=== PATIENT | female | born 1955 | race Caucasian/White ===

== ENCOUNTER 2019-11-11 14:02 | Outpatient (CLI) | payer MEDICARE ==
[2019-11-11 14:46] LABS: INR 2.2 (0.8-1.2)
== END 2019-11-11 14:03 | disposition home or self-care (01) ==
LOC: LAB 14:02
PROVIDERS: ATTEND Internal Medicine
DX: I48.0 Paroxysmal atrial fibrillation (principal); Z79.01 Long term (current) use of anticoagulants
CPT/HCPCS: 36415; 85610

== ENCOUNTER 2021-11-15 21:57 | Emergency (ER) | payer MEDICARE ==
[2021-11-15] MEDS ORDERED: MORPHINE 2 MG/ML CARPUJECT IVP STA (22:28)
[2021-11-15] MEDS ORDERED: ONDANSETRON 4 MG/2 ML VIAL IVP STA (22:28)
[2021-11-15 22:32] LABS: BASOPHILS % (AUTO) 0.2 %; EOSINOPHILS # (AUTO) 0.1 10^3/uL (0.0-0.7); EOSINOPHILS % (AUTO) 1.7 %; HCT - HEMATOCRIT 35.5 % (37.0-47.0); HGB - HEMOGLOBIN 11.1 g/dL (12.0-16.0); LYMPHOCYTES # (AUTO) 1.1 10^3/uL (1.5-3.5); LYMPHOCYTES % (AUTO) 13.8 %; MEAN CORPUSCULAR HEMOGLOBIN 23.7 pg (27.0-31.0); MEAN CORPUSCULAR HGB CONC 31.3 g/dL (32.0-36.0); MEAN CORPUSCULAR VOLUME 75.9 fL (81.0-99.0); MEAN PLATELET VOLUME 10.3 fL (7.9-10.8); MONOCYTES # (AUTO) 1.1 10^3/uL (0.0-1.0); NEUTROPHILS # (AUTO) 5.8 10^3/uL (1.5-6.6); NEUTROPHILS % (AUTO) 70.9 %; PLT - PLATELET COUNT 205 10^3/uL (130-450); RED BLOOD COUNT 4.68 10^6/uL (4.20-5.40); WHITE BLOOD COUNT 8.2 x10^3/uL (4.8-10.8)
[2021-11-15 22:38] LABS: INR 2.4 (0.8-1.2); PT - PROTHROMBIN TIME 25.5 secs (9.9-12.6)
[2021-11-15 22:46] LABS: ALBUMIN 3.8 g/dL (3.2-5.5); ALBUMIN/GLOBULIN RATIO 1.2 (1.0-2.2); BILIRUBIN,TOTAL 1.3 mg/dL (0.2-1.0); CALCIUM 9.1 mg/dL (8.5-10.3); POTASSIUM 3.7 mmol/L (3.5-5.0)
--- NOTE | 2021-11-15 22:48 | ED Physician Documentation ---
History of Present Illness - Stated complaint Stated Complaint: CHEST PX - Chief complaint Chief Complaint: Cardiac - History obtained from History obtained from: Patient - Additonal information Additional information: Patient is a 66-year-old female with a history of atrial fibrillation (on warfarin), CHF presenting for evaluation of lower chest pain that has been present since 10:00 this morning. She describes it as a tight band around her body as well as burning. It does not radiate elsewhere.She has not done much activity today but feels that it does worsen when she is trying to move around .She denies vomiting or diarrhea but does report nausea. Denies fever, cough or congestion. She has been compliant with her medications including her diuretic.Denies increased leg swelling or change in diet such as increased salt. Denies difficulty breathing.Denies history of cardiac stents. Review of Systems Constitutional: denies: Fever Nose: denies: Congestion Throat: denies: Sore throat Cardiac: reports: Chest pain / pressure Respiratory: denies: Dyspnea, Cough GI: reports: Abdominal Pain, Nausea. denies: Vomiting, Diarrhea : denies: Dysuria Musculoskeletal: denies: Back pain Neurologic: denies: Headache PD PAST MEDICAL HISTORY - Present Medications Home Medications: Ambulatory Orders Medication Instructions Recorded Confirmed Amitriptyline [Elavil] 25 mg PO 11/15/21 Amitriptyline [Elavil] 25 mg PO 11/15/21 Atorvastatin Calcium 40 mg PO 11/15/21 Gabapentin [Neurontin] 100 mg PO ONCE 11/15/21 11/15/21 Glipizide [Glipizide ER] 5 mg PO 11/15/21 Metoprolol Succinate [Toprol Xl] 25 mg PO ONCE 11/15/21 11/15/21 Montelukast [Singulair] 10 mg PO QPM 11/15/21 11/15/21 Oxycodone HCl [Roxicodone] 5 mg PO 11/15/21 Potassium Chloride 10 meq PO 11/15/21 Torsemide 20 mg PO DAILY 11/15/21 11/15/21 Warfarin [Coumadin] 5 mg PO 11/15/21 metFORMIN [Glucophage] 500 mg PO ONCE 11/15/21 11/15/21 rOPINIRole [Requip] 0.25 mg PO QPM 11/15/21 11/15/21 Ondansetron Odt [Zofran] 4 mg TL Q6H PRN #10 tablet 11/16/21 Oxycodone HCl/Acetaminophen 1 each PO Q6H PRN #10 tablet 11/16/21 [Percocet 5-325 mg Tablet] - Allergies Allergies/Adverse Reactions: Allergies Allergy/AdvReac Type Severity Reaction Status Date / Time cephalexin Allergy Anaphylaxis Verified 11/15/21 22:08 ciprofloxacin [From Cipro] Allergy Anaphylaxis Verified 11/15/21 22:08 PD ED PE NORMAL - General General: Alert and oriented X 3, No acute distress, Well developed/nourished - HEENT HEENT: Atraumatic, Moist mucous membranes - Neck Neck: Supple, no meningeal sign - Cardiac Cardiac: RRR, No murmur, Strong equal pulses - Respiratory Respiratory: No respiratory distress, Clear bilaterally - Abdomen Abdomen: Normal bowel sounds, Soft, Non distended, Other (Epigastric and bilateral upper quadrant tenderness to palpation, no rebound, no guarding, no masses or hernias) - Derm Derm: Warm and dry - Extremities Extremities: No edema, No calf tenderness / cord - Neuro Neuro: Normal speech Results - Vitals Vitals: Vital Signs - 24 hr 11/15/21 11/15/21 11/16/21 21:59 23:51 00:00 Temperature 36.6 C Heart Rate 75 62 64 Respiratory 18 15 15 Rate Blood Pressure 139/89 H 114/64 122/104 H O2 Saturation 97 98 99 11/16/21 00:45 Temperature Heart Rate 63 Respiratory 18 Rate Blood Pressure 117/103 H O2 Saturation 98 Oxygen O2 Source Room air - EKG (time done) 2201 Rate: Rate (enter#) (77) Rhythm: NSR Ischemia: No: ST elevation c/w ischemia, ST depression Other comments: Other comments (Motion artifact in multiple leads) Compare to prior EKG: Old EKG unavailable - Labs Labs: Laboratory Tests 11/15/21 11/15/21 11/15/21 22:17 22:17 22:17 WBC 8.2 RBC 4.68 Hgb 11.1 L Hct 35.5 L MCV 75.9 L MCH 23.7 L MCHC 31.3 L RDW 17.0 H Plt Count 205 MPV 10.3 Neut # (Auto) 5.8 Lymph # (Auto) 1.1 L [place] # (Auto) 1.1 H Eos # (Auto) 0.1 Baso # (Auto) 0.0 Absolute Nucleated RBC 0.00 Nucleated RBC % 0.0 PT INR Sodium 131 L Potassium 3.7 Chloride 94 L Carbon Dioxide 29 Anion Gap 8.0 BUN 16 Creatinine 1.0 Estimated GFR (MDRD) 55 L Glucose 166 H Calcium 9.1 Total Bilirubin 1.3 H AST 21 ALT 25 Alkaline Phosphatase 93 Troponin I High Sens 6.5 Total Protein 7.0 Albumin 3.8 Globulin 3.2 Albumin/Globulin Ratio 1.2 Lipase 35 11/15/21 22:17 WBC RBC Hgb Hct MCV MCH MCHC RDW Plt Count MPV Neut # (Auto) Lymph # (Auto) [place] # (Auto) Eos # (Auto) Baso # (Auto) Absolute Nucleated RBC Nucleated RBC % PT 25.5 H INR 2.4 H Sodium Potassium Chloride Carbon Dioxide Anion Gap BUN Creatinine Estimated GFR (MDRD) Glucose Calcium Total Bilirubin AST ALT Alkaline Phosphatase Troponin I High Sens Total Protein Albumin Globulin Albumin/Globulin Ratio Lipase PD MEDICAL DECISION MAKING - ED course Complexity details: reviewed results, re-evaluated patient, d/w patient, d/w family ED course: Patient presenting for evaluation of lower chest and upper abdominal pain. On exam her pain appears to be more to the abdomen than to the chest. EKG is reassuring and high-sensitivity is troponin is negative with constant pain greater than 6 hours. Feel that her symptoms are atypical for ACS. Chest x-ray also reviewed. Labs without significant findings. CT abdomen pelvis was also obtained without significant abnormalities. Patient feeling better with treatment in the emergency department. Discussed that the etiology of her symptoms is unclear and that she needs close follow-up. Also reviewed concerning symptoms to return for. Departure - Departure Disposition: 01 Home, Self Care Clinical Impression: Upper abdominal pain Chest pain Qualifiers: Chest pain type: unspecified Qualified Code(s): R07.9 - Chest pain, unspecified Condition: Stable Instructions: ED Chest Pain Atypical Unkn Cause, ED Epigastric Pain [facility] Prescriptions: Oxycodone HCl/Acetaminophen [Percocet 5-325 mg Tablet] 1 each PO Q6H PRN #10 tablet PRN Reason: pain Ondansetron Odt [Zofran] 4 mg TL Q6H PRN #10 tablet PRN Reason: Nausea / Vomiting Comments: You were evaluated for lower chest and upper abdominal pain.Your cardiac testing is reassuring with no signs of heart attack. Your labs are without any significant abnormalities. Your INR/Warfarin level is 2.4 which is within the appropriate range. A CT scan of your abdomen and pelvis was also obtained without any significant findings. The exact cause of your symptoms is unclear.You may need further testing such as follow-up with a GI doctor for a scope to determine the cause of your pain.Please continue with taking omeprazole and avoid any acidic or spicy foods.I have also sent a prescription [facility] and [facility] [place]. Please call Arma in the morning to arrange for close follow-up. I am prescribing a short course of narcotic pain medication for you. These are potentially dangerous and addictive medications that should be used carefully. These medications may constipate you. Take an [id number] stool softener (docusate) twice daily with plenty of water while taking these medications. If you go 24 hours without a bowel movement, take [id number] miralax, per package instructions. Do not drink or drive while taking these medications. If you received narcotic or sedating medications while in the emergency department, do not drive for 24 hours. Store this medication in a safe, secure place and out of reach of children. It is a violation of federal law to give or sell this medication to another person or to use in a manner other than prescribed. The ED will not refill narcotic prescriptions, including prescriptions lost or stolen. To dispose of unwanted medications: 1. [facility] at [address] in [place] has a medication drop box. They accept prescription medications (in pill form) Friday through Friday 9:00 a.m. to 5:00 p.m. 2. The [facility] accepts prescription medications (in pill form only) for disposal year round. Call for more information. 3. Contact the [facility] for the next [facility] sponsored prescription drug collection event. , [phone], or [phone]; Note that many narcotic pain relievers also contain Tylenol/acetaminophen. Please ensure that your total dose of acetaminophen from all sources does not exceed 3 g (3000 mg) per day. Discharge Date/Time: 11/16/21 01:05
--- NOTE | 2021-11-15 23:06 | XRAY Report ---
PROCEDURE: Chest 1 View X-Ray INDICATIONS: Chest pain TECHNIQUE: One view of the chest was acquired. COMPARISON: None. FINDINGS: Surgical changes and devices: None. Lungs and pleura: No pleural effusions or pneumothorax. Lungs are clear. Mediastinum: Mediastinal contours appear normal. Heart size is normal. Bones and chest wall: No suspicious bony lesions. Overlying soft tissues appear unremarkable. IMPRESSION: 1. No acute cardiopulmonary disease. Reviewed by: Dillan Parker MD on 11/15/2021 11:05 PM PDT Approved by: Dillan Parker MD on 11/15/2021 11:05 PM PDT Station ID: [id number]
[2021-11-15] MEDS ORDERED: SODIUM CHLORIDE 0.9% 500 ML IV STA (23:10)
[2021-11-15] MEDS ORDERED: ACETAMINOPHEN 500 MG TABLET PO STA (23:12)
--- NOTE | 2021-11-15 23:58 | CT Report ---
PROCEDURE: Abdomen/Pelvis W INDICATIONS: upper abd pain CONTRAST: IV CONTRAST: Optiray 320 ml: 100 PO CONTRAST: *NO PO CONTRAST TECHNIQUE: After the administration of intravenous contrast, 5 mm thick sections acquired from the diaphragms to the symphysis. 5 mm thick coronal and sagittal reformats were acquired. For radiation dose reducti on, the following was used: automated exposure control, adjustment of mA and/or kV according to alex ent size. COMPARISON: None. FINDINGS: Image quality: Excellent. Lung bases:Mild dependent atelectasis demonstrated bilaterally. Heart: Heart is normal in size. There is mitral annular and aortic valve calcification. ABDOMEN: Liver: No mass lesion. Gallbladder:Surgically absent. Biliary ducts:There is mild intrahepatic biliary ductal dilatation. Extra hepatic duct caliber is wi thin normal limits. Pancreas:No peripancreatic fat stranding or fluid collections. No pancreatic duct dilatation. Spleen: Normal in size. Adrenal Glands: No adrenal nodules. Kidneys and Ureters: No hydronephrosis.There is minimal nonspecific right perinephric stranding.A small indistinct hypodensity in the right renal cortex laterally is too small to characterize and may represent a small cyst. Stomach and Bowel: Stomach, small bowel loops, and colon are normal in caliber and wall thickness. N o pericecal inflammatory changes to suggest appendicitis. There is colonic diverticulosis without acu te diverticulitis. Peritoneum: No abnormal intraperitoneal fluid. No free air. Ventral Wall: No hernia. Abdominal Nodes: No retroperitoneal or mesenteric adenopathy by size criteria. Vessels: Aorta and inferior vena cava are normal in size. PELVIS: Pelvic Organs: Unremarkable. Bladder: Unremarkable. Pelvic Nodes: No enlarged lymph nodes. Miscellaneous: No inguinal hernias are seen. Bones: Visualized osseous structures demonstrate no suspicious focal lesions. IMPRESSION: 1. No definite acute intra-abdominal abnormality. Specifically, no CT evidence of acute pancreatitis. 2. Mild intrahepatic biliary ductal dilatation is nonspecific and may reflect sequelae of prior vishnu cystectomy. Reviewed by: Dillan Parker MD on 11/15/2021 11:56 PM PDT Approved by: Dillan Parker MD on 11/15/2021 11:56 PM PDT Station ID: [id number]
[2021-11-16] MEDS ORDERED: LIDOCAINE VISCOUS 2% 15 ML UDC MM STA (00:18)
[2021-11-16] MEDS ORDERED: MAG HYDROX/AL HYDROX/SIMETH 30 ML UDC PO STA (00:18)
[2021-11-16] MEDS ORDERED: oxyCODONE/ACET 5/325 Prepack 4 PO STA (00:19)
[2021-11-16] MEDS ORDERED: ONDANSETRON ODT 4 MG Prepack 2 TL PRN (00:19)
[2021-11-16] MEDS ORDERED: ONDANSETRON 4 MG/2 ML VIAL IVP STA (00:35)
[2021-11-16 00:46] VITALS: BP 117/103
== END 2021-11-16 01:05 | disposition home or self-care (01) ==
LOC: ED 21:57
DX: R07.9 Chest pain, unspecified (principal); R10.10 Upper abdominal pain, unspecified; I48.91 Unspecified atrial fibrillation; Z79.01 Long term (current) use of anticoagulants
CPT/HCPCS: 36415; 71045; 74177; 80053; 83690; 84484; 85025; 85610; 93005; 96361; 96374; 96375; 96376; 99284; A9270; Q9967